=== PATIENT | female | born 2000 | race Caucasian/White ===

== ENCOUNTER → 2024-12-04 06:38 | Outpatient (REF) | payer OTHER, SELFPAY | LOC: PAVMRI 06:38 | PROVIDERS: ATTENDING PHYSICIAN Family Medicine | DX: M48.061 Spinal stenosis, lumbar region without neurogenic claudication (principal); M53.3 Sacrococcygeal disorders, not elsewhere classified; M54.16 Radiculopathy, lumbar region | CPT/HCPCS: 72148 ==